=== PATIENT | female | born 1940 | race Two or more races ===

== ENCOUNTER 2020-03-02 09:13 | Emergency (ER) | payer OTHER, BC | END 2020-03-02 13:44 | disposition home or self-care (01) | LOC: JVIRT 09:13 | DX: Z11.59 Encounter for screening for other viral diseases (principal) | CPT/HCPCS: C9803; Q3014-GT; U0003 ==

== ENCOUNTER 2022-12-24 04:23 | Day surgery (SDC) | payer OTHER, BC ==
[2022-12-19 11:14] VITALS: BMI 36.3
[2022-12-24] MEDS ORDERED: ACETAMINOPHEN 325 MG TABLET (FP) PO PRN (09:40)
[2022-12-24] MEDS ORDERED: IBUPROFEN 400 MG TABLET (FP) PO PRN (09:40)
[2022-12-24] MEDS ORDERED: ONDANSETRON 4 MG/2 ML VIAL IVPUSH PRN ×2 (09:41→11:27)
[2022-12-24] MEDS ORDERED: MIDAZOLAM HCL 2 MG/2 ML SINGLE DOSE VIAL ONE ×2 (10:30→10:47)
[2022-12-24] MEDS ORDERED: PROPOFOL 20 ML ONE (10:44)
[2022-12-24] MEDS ORDERED: PROMETHAZINE HCL 25 MG/1 ML VIAL IVPB PRN (11:27)
[2022-12-24] MEDS ORDERED: oxyCODONE HCL 5 MG TABLET PO PRN (11:27)
[2022-12-24] MEDS ORDERED: LACTATED RINGERS SOLUTION 1,000 ML IV SCH (11:30)
[2022-12-24 11:53] VITALS: TEMP 97.4
[2022-12-24] MEDS ORDERED: ONDANSETRON 4 MG/2 ML VIAL ONE (12:58)
[2022-12-24 13:39] VITALS: RESP 20
[2022-12-24 14:59] VITALS: BP 142/72; PULSE 65
== END 2022-12-24 14:30 | disposition home or self-care (01) ==
LOC: JASU-SURG 04:23
PROVIDERS: ATTEND Obstetrics & Gynecology
PROC: 0UB98ZZ Excision of Uterus, Via Natural or Artificial Opening Endoscopic (ICD-10-PCS; principal; 2022-12-24 10:00)
DX: N95.0 Postmenopausal bleeding (principal); N84.0 Polyp of corpus uteri
CPT/HCPCS: 82962; 94760